=== PATIENT | female | born 1990 | race Caucasian/White ===

== ENCOUNTER 2022-07-16 08:00 | Outpatient (CLI) | payer OTHER ==
[2022-07-16 19:44] LABS: BACTERIAL VAGINOSIS DNA NEGATIVE (NEGATIVE); CANDIDA GLABRATA DNA NEGATIVE (NEGATIVE); CANDIDA GROUP DNA POSITIVE (NEGATIVE); CANDIDA KRUSEI DNA NEGATIVE (NEGATIVE); TRICHOMONAS VAGINALIS DNA NEGATIVE (NEGATIVE)
[2022-07-16 20:24] LABS: CHLAMYDIA TRACHOMATIS DNA NEGATIVE (NEGATIVE); NEISSERIA GONORRHOEAE DNA NEGATIVE (NEGATIVE)
== END 2022-07-16 23:59 | disposition home or self-care (01) ==
LOC: LAB.WC 08:00
PROVIDERS: ATTEND Obstetrics & Gynecology
DX: N92.0 Excessive and frequent menstruation with regular cycle (principal)
CPT/HCPCS: 36415; 81514; 83036; 84403; 84443; 87491; 87591; 87661

== ENCOUNTER 2022-07-16 11:32 | Outpatient (CLI) | payer OTHER ==
[2022-07-16 14:06] LABS: THYROID STIMULATING HORMONE 1.99 uIU/mL (0.34-5.60)
[2022-07-16 14:20] LABS: ESTIMATED AVERAGE GLUCOSE 114 mg/dL (70-100); HEMOGLOBIN A1c% 5.6 % (4.27-6.07)
== END 2022-07-16 11:33 | disposition home or self-care (01) ==
LOC: LAB 11:32
PROVIDERS: ATTEND Obstetrics & Gynecology
DX: N92.0 Excessive and frequent menstruation with regular cycle (principal)
CPT/HCPCS: 36415; 83036; 84403; 84443

== ENCOUNTER 2022-08-03 10:50 | Outpatient (CLI) | payer OTHER ==
--- NOTE | 2022-08-03 12:29 | Ultrasound Report ---
PROCEDURE: Pelvic w/Transvaginal INDICATIONS: EXCESSIVE AND FREQUENT MENSTRUATION TECHNIQUE: Real-time scanning was performed of the pelvic organs, with image documentation. Additional endovagi nal scanning was necessary due to incomplete visualization of the adnexal and endometrial structures by transabdominal scanning. COMPARISON: None. FINDINGS: Small simple physiologic/follicular ovarian cysts. No solid or suspicious ovarian/adnexal mass. Daisha l size and appearance of uterus. Normal endometrial thickness. IMPRESSION: Normal study. Reviewed by: Tam Garces MD on 08/03/2022 12:27 PM PST Approved by: Tam Garces MD on 08/03/2022 12:27 PM PST Station ID: [id number]
== END 2022-08-03 10:51 | disposition home or self-care (01) ==
LOC: DI 10:50
PROVIDERS: ATTEND Obstetrics & Gynecology
DX: N92.0 Excessive and frequent menstruation with regular cycle (principal)

== ENCOUNTER 2023-01-07 08:41 | Emergency (ER) | payer OTHER ==
[2023-01-07 09:25] LABS: BASOPHILS % (AUTO) 0.4 %; EOSINOPHILS # (AUTO) 0.2 10^3/uL (0.0-0.7); EOSINOPHILS % (AUTO) 1.9 %; HCT - HEMATOCRIT 38.1 % (37.0-47.0); HGB - HEMOGLOBIN 12.4 g/dL (12.0-16.0); LYMPHOCYTES # (AUTO) 2.3 10^3/uL (1.5-3.5); MEAN CORPUSCULAR HEMOGLOBIN 28.8 pg (27.0-31.0); MEAN CORPUSCULAR HGB CONC 32.5 g/dL (32.0-36.0); MEAN CORPUSCULAR VOLUME 88.6 fL (81.0-99.0); MEAN PLATELET VOLUME 9.3 fL (7.9-10.8); MONOCYTES # (AUTO) 0.7 10^3/uL (0.0-1.0); MONOCYTES % (AUTO) 5.9 %; NEUTROPHILS # (AUTO) 7.9 10^3/uL (1.5-6.6); NEUTROPHILS % (AUTO) 70.5 %; PLT - PLATELET COUNT 318 10^3/uL (130-450); WHITE BLOOD COUNT 11.1 x10^3/uL (4.8-10.8)
[2023-01-07 09:32] LABS: BILIRUBIN,URINE NEGATIVE (NEGATIVE); GLUCOSE, URINE (UA) NEGATIVE (NEGATIVE); KETONES,URINE (UA) NEGATIVE (NEGATIVE); LEUKOCYTE ESTERASE, URINE NEGATIVE (NEGATIVE); NITRITE,URINE NEGATIVE (NEGATIVE); OCCULT BLOOD,URINE NEGATIVE (NEGATIVE); PROTEIN,URINE NEGATIVE (NEGATIVE); UROBILINOGEN,URINE 0.2 (NORMAL) E.U./dL (NORMAL)
[2023-01-07 09:35] LABS: CLARITY,URINE CLEAR (CLEAR); HCG UR QUAL NEGATIVE
[2023-01-07 09:51] LABS: ALBUMIN 3.9 g/dL (3.2-5.5); ALBUMIN/GLOBULIN RATIO 1.1 (1.0-2.2); BILIRUBIN,TOTAL 0.3 mg/dL (0.2-1.0); CALCIUM 9.2 mg/dL (8.5-10.3); CREATININE 0.7 mg/dL (0.4-1.0); POTASSIUM 3.6 mmol/L (3.5-5.0); TOTAL PROTEIN 7.6 g/dL (6.7-8.2)
--- NOTE | 2023-01-07 11:57 | CT Report ---
PROCEDURE: ABDOMEN/PELVIS WO INDICATIONS: L flank pain TECHNIQUE: Noncontrast 5 mm thick sections acquired from the diaphragms to the symphysis. 5 mm coronal and sagi ttal reformats were then performed. For radiation dose reduction, the following was used: automated exposure control, adjustment of mA and/or kV according to patient size. COMPARISON: Ultrasound pelvis 12- FINDINGS: Image quality: Excellent. Lung bases and heart: Unremarkable. Liver: No solid mass. Gallbladder and biliary tree: Unremarkable. Spleen: No splenomegaly. Pancreas: No pancreatic ductal dilation. Adrenals: No adrenal nodule. Kidneys and ureters: No hydronephrosis. No renal cystic lesion which requires follow up. No solid mas s. Bowel and peritoneum: No bowel distension. No pathologic free fluid. Lymph nodes: No central or retroperitoneal adenopathy. Scattered subcentimeter right lower quadrant l ymph nodes are present. Appendix is normal. Vessels: No infrarenal aortic aneurysm. PELVIS Reproductive organs: Unremarkable. Bladder: No abnormal wall thickening, accounting for underdistension. Pelvic lymph nodes: No pelvic adenopathy by size criteria. Bones: No aggressive osseous abnormality. Other: No inguinal hernia. Small fat-containing ventral hernia. IMPRESSION: No hydroneprosis or obstructing renal stone. Appendix is normal. Right lower quadrant lymph nodes subcentimeter in size are present. These could b e reflective of mesenteric adenitis if clinically appropriate with symptoms. Reviewed by: Nelia Reardon MD on 01/07/2023 11:55 AM PDT Approved by: Nelia Reardon MD on 01/07/2023 11:55 AM PDT Station ID: [id number]
--- NOTE | 2023-01-07 13:17 | ED Physician Documentation ---
PD HPI ABD PAIN - Stated complaint Stated Complaint: ABD PX,NAUSEA - Chief complaint Chief Complaint: Abd Pain - History obtained from History obtained from: Patient - Additional information Additional information: The patient comes to the emergency department chief complaint of left upper quadrant pain wrapping around to her flank and back, with the nausea and vomiting. She states that she has a history of GERD and ulcers a long time ago but is not generally bothered by symptoms of these. However, she has began to notice over the last several days that she has had pain very definitely on the l eft side with ever she puts anything in her stomach. She denies any right-sided pain. No fevers or chills. No respiratory symptoms. She has had endoscopy previously but its been some years. She used to be on omeprazole but is no longer taking this. No other complaints at this time. 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: Rhinoplasty - Present Medications Home Medications: Ambulatory Orders Medication Instructions Recorded Confirmed Omeprazole 40 mg PO DAILY #60 cap 01/07/23 Ondansetron Odt [Zofran] 4 mg TL Q6H PRN #14 tablet 01/07/23 - Allergies Allergies/Adverse Reactions: Allergies Allergy/AdvReac Type Severity Reaction Status Date / Time cillins Allergy Unknown Uncoded 01/07/23 08:51 - Social History Does the pt smoke?: No Smoking Status: Never smoker PD ED PE NORMAL - Vitals Vital signs reviewed: Yes - General General: Alert and oriented X 3, No acute distress, Well developed/nourished - HEENT HEENT: Atraumatic, PERRL, EOMI, Moist mucous membranes - Neck Neck: Supple, no meningeal sign - Cardiac Cardiac: RRR, No murmur, Strong equal pulses - Respiratory Respiratory: No respiratory distress, Clear bilaterally - Abdomen Abdomen: Soft, Non distended, Other (Left upper quadrant abdominal tenderness, extending to left flank, no rebound or guarding) - Derm Derm: Normal color, Warm and dry, No rash - Extremities Extremities: No deformity, No edema - Neuro Neuro: Alert and oriented X 3, Other (Grossly intact) - Psych Psych: Normal mood, Normal affect Results - Vitals Vitals: Vital Signs - 24 hr 01/07/23 01/07/23 08:48 11:25 Temperature 36.2 C L Heart Rate 76 64 Respiratory 16 20 Rate Blood Pressure 116/60 107/72 O2 Saturation 100 Oxygen O2 Source Room air - Labs Labs: Laboratory Tests 01/07/23 01/07/23 01/07/23 09:15 09:21 09:21 WBC 11.1 H RBC 4.30 Hgb 12.4 Hct 38.1 MCV 88.6 MCH 28.8 MCHC 32.5 RDW 13.0 Plt Count 318 MPV 9.3 Neut # (Auto) 7.9 H Lymph # (Auto) 2.3 Hill # (Auto) 0.7 Eos # (Auto) 0.2 Baso # (Auto) 0.0 Absolute Nucleated RBC 0.00 Nucleated RBC % 0.0 Sodium 142 Potassium 3.6 Chloride 106 Carbon Dioxide 28 Anion Gap 8.0 BUN 13 Creatinine 0.7 Estimated GFR (MDRD) 98 Glucose 82 Calcium 9.2 Total Bilirubin 0.3 AST 18 ALT 17 Alkaline Phosphatase 40 L Total Protein 7.6 Albumin 3.9 Globulin 3.7 Albumin/Globulin Ratio 1.1 Lipase 38 Urine Color YELLOW Urine Clarity CLEAR Urine pH 6.0 Ur Specific Lawrence 1.025 Urine Protein NEGATIVE Urine Glucose (UA) NEGATIVE Urine Ketones NEGATIVE Urine Occult Blood NEGATIVE Urine Nitrite NEGATIVE Urine Bilirubin NEGATIVE Urine Urobilinogen 0.2 (NORMAL) Ur Leukocyte Esterase NEGATIVE Ur Microscopic Review NOT INDICATED Urine Culture Comments NOT INDICATED Urine HCG, Qual NEGATIVE - Rads (name of study) CT abdomen pelvis without contrast Relevant Findings:: Final report received, See rad report (Negative) PD Medical Decision Making - ED course Complexity details: reviewed results, re-evaluated patient, considered differential, d/w patient ED course: The patient's work-up is negative, Including ER abdominal panel and CBC, both of which were ordered and reviewed by me. She also had a negative noncontrast CT of the abdomen pelvis. I discussed with her that she should probably get back on omeprazole and I have sent a prescription in for this. We have discussed the need to follow-up with her primary doctor to discuss endoscopy. Departure - Departure Disposition: 01 Home, Self Care Clinical Impression: Abdominal pain Qualifiers: Abdominal location: left upper quadrant Qualified Code(s): R10.12 - Left upper quadrant pain Condition: Stable Instructions: ED Abdominal Pain Female Non-Specific Abdominal Pain Prescriptions: Omeprazole 40 mg PO DAILY #60 cap Ondansetron Odt [Zofran] 4 mg TL Q6H PRN #14 tablet PRN Reason: Nausea / Vomiting Comments: Your labs, urinalysis, and CT all look good. With your history of reflux and ulcers, it is probably a good idea for you to get back on omeprazole and follow- up with your primary doctor to discuss having an endoscopy done. Please call today to schedule an appointment for soon as possible. You may also take [id number] Maalox or Mylanta to help with some of the stomach discomfort. The prescription for your medications been electronically transmitted to the [facility] pharmacy in [place].
[2023-01-07 13:35] VITALS: BP 110/67
== END 2023-01-07 13:34 | disposition home or self-care (01) ==
LOC: ED 08:41
DX: R10.12 Left upper quadrant pain (principal)
CPT/HCPCS: 36415; 80053; 81001; 81003; 81025; 83690; 85025; 87086; 99284

== ENCOUNTER 2023-11-07 07:22 | Outpatient (CLI) | payer OTHER ==
[2023-11-07 12:54] LABS: THYROID STIMULATING HORMONE 2.65 uIU/mL (0.34-5.60)
[2023-11-07 12:58] LABS: PROLACTIN 9.47 ng/mL
== END 2023-11-07 07:23 | disposition home or self-care (01) ==
LOC: LAB.N 07:22
PROVIDERS: ATTEND Obstetrics & Gynecology
DX: N93.9 Abnormal uterine and vaginal bleeding, unspecified (principal); R63.5 Abnormal weight gain
CPT/HCPCS: 36415; 82627; 82670; 84146; 84402; 84443

== ENCOUNTER 2023-11-22 07:28 | Outpatient (CLI) | payer OTHER ==
--- NOTE | 2023-11-22 09:50 | Ultrasound Report ---
PROCEDURE: Pelvic w/Transvaginal INDICATIONS: AUB TECHNIQUE: Real-time scanning was performed of the pelvic organs, with image documentation. Additional endovagi nal scanning was necessary due to incomplete visualization of the adnexal and endometrial structures by transabdominal scanning. COMPARISON: None. FINDINGS: Uterus: Uterus is anteverted and normal in size at 8.6 x 4.3 x 5.3 cm. The myometrium is heterogene ous. 7 x 3 x 5 mm cystic area within anterior myometrium is seen. No internal vascularity. No discret e uterine fibroid is seen. The endometrium measures 14 mm in combined thickness. Trace amount of flu id is noted within endometrium. No gross endometrial mass. Ovaries: The right ovary measures 1.7 x 1.1 x 1.2 cm, with a calculated ovarian volume of 1.21 cc. The left ovary measures 3.2 x 1.9 x 2.0 cm, with a calculated ovarian volume of 6.48 cc. The ovaries have a normal sonographic appearance. Dominant follicle is noted in left ovary measures 1.6 x 1.3 x 1.4 cm in size. Less than 12 follicles can be seen in each ovary. No adnexal masses are seen. No cy stic lesions measuring greater than 3 cm. Other: No pathologic free abdominal or pelvic fluid. Prominent bilateral adnexal vessels are seen. IMPRESSION: 1. Heterogeneous myometrial echotexture with subcentimeter cyst in anterior myometrium as above. No d iscrete uterine fibroids. 2. Trace amount of endometrial fluid. No endometrial mass. 3. Dominant follicle in left ovary as above. No solid appearing ovarian lesion. No adnexal mass. 4. Incidentally noted of prominent vessels in bilateral adnexa which can be seen associated with pelv ic congestion syndrome suggest clinical correlation. Reviewed by: Mack Borja MD on 11/22/2023 9:49 AM PDT Approved by: Mack Borja MD on 11/22/2023 9:49 AM PDT Station ID: [id number]
== END 2023-11-22 07:29 | disposition home or self-care (01) ==
LOC: DI 07:28
PROVIDERS: ATTEND Obstetrics & Gynecology
DX: N93.9 Abnormal uterine and vaginal bleeding, unspecified (principal); N85.8 Other specified noninflammatory disorders of uterus

== ENCOUNTER 2024-01-08 07:04 | Outpatient (CLI) | payer OTHER ==
[2024-01-08 11:49] LABS: BASOPHILS % (AUTO) 0.6 %; EOSINOPHILS # (AUTO) 0.1 10^3/uL (0.0-0.7); EOSINOPHILS % (AUTO) 1.9 %; HCT - HEMATOCRIT 37.8 % (37.0-47.0); HGB - HEMOGLOBIN 12.2 g/dL (12.0-16.0); LYMPHOCYTES # (AUTO) 2.1 10^3/uL (1.5-3.5); LYMPHOCYTES % (AUTO) 30.2 %; MEAN CORPUSCULAR HEMOGLOBIN 28.6 pg (27.0-31.0); MEAN CORPUSCULAR HGB CONC 32.3 g/dL (32.0-36.0); MEAN CORPUSCULAR VOLUME 88.7 fL (81.0-99.0); MEAN PLATELET VOLUME 10.1 fL (7.9-10.8); MONOCYTES # (AUTO) 0.4 10^3/uL (0.0-1.0); MONOCYTES % (AUTO) 6.3 %; NEUTROPHILS # (AUTO) 4.1 10^3/uL (1.5-6.6); NEUTROPHILS % (AUTO) 60.9 %; PLT - PLATELET COUNT 313 10^3/uL (130-450); RED BLOOD COUNT 4.26 10^6/uL (4.20-5.40); RED CELL DISTRIBUTION WIDTH 13.2 % (12.0-15.0); WHITE BLOOD COUNT 6.8 x10^3/uL (4.8-10.8)
[2024-01-08 12:33] LABS: FERRITIN 12.2 ng/mL (11.0-306.8)
== END 2024-01-08 07:05 | disposition home or self-care (01) ==
LOC: LAB.N 07:04
PROVIDERS: ATTEND Obstetrics & Gynecology
DX: R63.5 Abnormal weight gain (principal)
CPT/HCPCS: 36415; 82306; 82607; 82728; 85025